=== PATIENT | male | born 1940 | race Caucasian/White ===

== ENCOUNTER 2017-04-14 08:59 | Observation (INO) | payer MEDICARE, OTHER ==
[2017-04-14] MEDS ORDERED: Sodium Chloride 0.9% 1,000 ML IV ONE (09:15)
[2017-04-14] MEDS ORDERED: Ondansetron 4 MG/2 ML SDV IVPUSH ONE (09:24)
[2017-04-14 09:51] LABS: CHLORIDE,CL 111 mmol/L (98-110); SODIUM,NA 143 mmol/L (136-146)
[2017-04-14] MEDS ORDERED: Meclizine 25 MG Tab PO ONE (10:09)
--- NOTE | 2017-04-14 10:11 | EDM.PDOC ---
ED HPI GENERAL MEDICAL PROBLEM - General Chief Complaint: Neurological Problem Stated Complaint: DIZZY Time Seen by Provider: 04/14/17 09:08 Source of Information: Reports: Patient History Limitations: Reports: No Limitations - History of Present Illness INITIAL COMMENTS - FREE TEXT/NARRATIVE: History of present illness: []Patient was driving to his friend's house and suddenly became dizzy with spinning around him. Patient called a friend who picked him up and brought him to the emergency room. Noted that his speech is slurred. He has not had these symptoms in the past and have now subsided however he now feels extremely weak, nauseous with an upset stomach. He has not had any vomiting. He denies any visual changes, numbness, tingling, headache, chest pain, shortness of breath or back pain. Patient was also given a diagnosis of Parkinson's this week. Review of systems: As per history of present illness and below otherwise all systems reviewed and negative. Past medical history: As per history of present illness and as reviewed below otherwise noncontributory. Surgical history: As per history of present illness and as reviewed below otherwise noncontributory. Social history: No reported history of drug or alcohol abuse. Family history: As per history of present illness and as reviewed below otherwise noncontributory. Physical exam: General: Well developed, well nourished appears very weak HEENT: Atraumatic, normocephalic, pupils reactive, negative for conjunctival pallor or scleral icterus, mucous membranes moist, throat clear, neck supple, nontender, trachea midline. Lungs: Clear to auscultation, breath sounds equal bilaterally, chest nontender. Heart: S1S2, regular, negative for clicks, rubs, or JVD. Abdomen: Soft, nondistended, nontender. Negative for masses or hepatosplenomegaly. Negative for costovertebral tenderness. Pelvis: Stable nontender. Genitourinary: Deferred. Rectal: Deferred. Extremities: Atraumatic, negative for cords or calf pain. Neurovascular unremarkable. Neuro: Awake, alert, oriented. Cranial nerves II through XII unremarkable. Cerebellum unremarkable. Motor and sensory unremarkable throughout. Exam nonfocal. Diagnostics: []CBC, CMP, troponin, EKG, Therapeutics: []IV hydration, Solu-Medrol given Impression: []Generalized weakness, hypocalcemia, history of myasthenia gravis and Parkinson's. Consult to Dr. Swanson who is comfortable consulting on this patient if the hospitalist will admit. Dr. Dumont will be admitting this patient. Plan: []Admit for IV hydration, further workup and observation Definitive disposition and diagnosis as appropriate pending reevaluation and review of above. - Related Data Allergies Allergy/AdvReac Type Severity Reaction Status Date / Time No Known Allergies Allergy Verified 04/14/17 09:07 Home Meds: Home Meds Levothyroxine 25 mcg PO ACBREAKFAST 09/09/16 [History] PARoxetine HCl [Paroxetine HCl] 40 mg PO DAILY 09/09/16 [History] Prednisone [IJD: predniSONE] 20 mg PO ASDIRECTED 09/09/16 [History] Carbidopa/Levodopa [Sinemet 10-100 mg] 10 - 100 mg PO ASDIRECTED 04/14/17 [ History] Past Medical History HEENT History: Reports: Hard of Hearing, Impaired Vision Other HEENT History: wear glasses Cardiovascular History: Reports: Hypertension Gastrointestinal History: Reports: None Neurological History: Reports: Other (See Below) Other Neuro History: Myastenia Gravis, parkinsons disease Psychiatric History: Reports: Anxiety Endocrine/Metabolic History: Reports: Other (See Below) Other Endocrine/Metabolic History: myasthenia gravis - Infectious Disease History Infectious Disease History: Reports: Chicken Pox, Measles, Mumps - Past Surgical History GI Surgical History: Reports: Cholecystectomy Social & Family History - Family History Family Medical History: Noncontributory - Tobacco Use Smoking Status *Q: Former Smoker Used Tobacco, but Quit: Yes Month Tobacco Last Used: 1979 Second Hand Smoke Exposure: No - Caffeine Use Caffeine Use: Reports: Soda Caffeine Use Comment: 1drink/day - Recreational Drug Use Recreational Drug Use: No ED ROS GENERAL - Review of Systems Review Of Systems: See Below (See history of present illness) ED EXAM, DIZZINESS - Physical Exam Exam: See Below (See history of present illness) Course - Vital Signs Last Recorded V/S: Last Vital Signs Temp 36.1 C 04/14/17 10:27 Pulse 55 L 04/14/17 10:27 Resp 16 04/14/17 10:27 BP 173/76 H 04/14/17 10:27 Pulse Ox 96 04/14/17 10:27 - Orders/Labs/Meds Orders: Active Orders 24 hr Category Date Time Status EKG Documentation Completion [RC] STAT Care 04/14/17 09:08 Active EKG Documentation Completion [RC] STAT Care 04/14/17 09:15 Inactive Head wo Cont [CT] Stat Exams 04/14/17 10:26 Taken Labs: Laboratory Tests 04/14/17 04/14/17 04/14/17 Range/Units 09:10 09:10 09:10 WBC 8.14 (4.0-11.0) K/uL RBC 4.14 L (4.50-5.90) M/uL Hgb 14.1 (13.0-17.0) g/dL Hct 40.0 (38.0-50.0) % MCV 96.6 (80.0-98.0) fL MCH 34.1 H (27.0-32.0) pg MCHC 35.3 (31.0-37.0) g/dL RDW Std Deviation 47.8 (28.0-62.0) fl RDW Coeff of Jeff 14 (11.0-15.0) % Plt Count 173 (150-400) K/uL MPV 10.50 (7.40-12.00) fL Neut % (Auto) 69.3 (48.0-80.0) % Lymph % (Auto) 20.5 (16.0-40.0) % Barren % (Auto) 6.9 (0.0-15.0) % Eos % (Auto) 2.8 (0.0-7.0) % Baso % (Auto) 0.5 (0.0-1.5) % Neut # (Auto) 5.6 (1.4-5.7) K/uL Lymph # (Auto) 1.7 (0.6-2.4) K/uL Barren # (Auto) 0.6 (0.0-0.8) K/uL Eos # (Auto) 0.2 (0.0-0.7) K/uL Baso # (Auto) 0.0 (0.0-0.1) K/uL Nucleated RBC % 0.0 /100WBC Nucleated RBCs # 0 K/uL Sodium 143 (136-146) mmol/L Potassium 3.4 L (3.5-5.1) mmol/L Chloride 111 H (98-110) mmol/L Carbon Dioxide 22 (21-31) mmol/L BUN 19 (6.0-23.0) mg/dL Creatinine 0.9 (0.6-1.5) mg/dL Est Cr Clr Drug Dosing 78.65 mL/min Estimated GFR (MDRD) > 60.0 ml/min Glucose 124 H (60-110) mg/dL Calcium 8.6 L (8.8-10.8) mg/dL Total Bilirubin 1.5 (0.1-1.5) mg/dL AST 20 (5-40) IU/L ALT 26 (8-54) IU/L Alkaline Phosphatase 64 (40-150) Troponin I < 0.10 (0.0-0.29) NG/ML Total Protein 6.8 (6.0-8.0) g/dL Albumin 3.9 (3.4-4.8) g/dL Globulin 2.9 (2.0-3.5) g/dL Albumin/Globulin Ratio 1.3 (1.3-2.8) Amylase 31 (10-90) U/L Lipase 10 (7-80) U/L Meds: Medications Discontinued Medications Generic Name Dose Route Start Last Admin Trade Name Freq PRN Reason Stop Dose Admin Sodium Chloride 1,000 mls @ 999 mls/hr 04/14/17 09:15 04/14/17 09:22 Normal Saline IV 04/14/17 10:15 999 mls/hr .Bolus ONE Administration Meclizine HCl 25 mg 04/14/17 10:09 04/14/17 10:26 Antivert PO 04/14/17 10:10 25 mg ONETIME ONE Administration Methylprednisolone Sodium Succinate 125 mg 04/14/17 10:16 04/14/17 10:26 Solu-Medrol IVPUSH 04/14/17 10:17 125 mg ONETIME ONE Administration Ondansetron HCl 4 mg 04/14/17 09:24 04/14/17 09:27 Zofran IVPUSH 04/14/17 09:25 4 mg ONETIME ONE Administration Departure - Departure Time of Disposition: 11:25 Disposition: Admitted As Inpatient 64 Condition: good, fair Clinical Impression: Generalized weakness - Discharge Information Forms: ED Department Discharge - My Orders Last 24 Hours: My Active Orders 04/14/17 09:08 EKG Documentation Completion [RC] STAT 04/14/17 09:15 EKG Documentation Completion [RC] STAT 04/14/17 10:26 Head wo Cont [CT] Stat - Assessment/Plan Last 24 Hours: My Active Orders 04/14/17 09:08 EKG Documentation Completion [RC] STAT 04/14/17 09:15 EKG Documentation Completion [RC] STAT 04/14/17 10:26 Head wo Cont [CT] Stat
[2017-04-14] MEDS ORDERED: methylPREDNISolone Sodium Succinate 125 MG/2 ML SDV IVPUSH ONE (10:16)
--- NOTE | 2017-04-14 11:22 | CT ---
EXAMINATION: Non contrast CT head. Coronal and sagittal reformats. HISTORY: Pain FINDINGS: No evidence of intra or extra axial hemorrhage, mass, midline shift, hydrocephalus or edema. Mild g eneralized atrophy. Subtle periventricular white matter hypodensities are noted. No hypoattenuation changes in the major vascular territories to suggest acute infarct. No abnormal intracranial calcifications are detected. No evidence of substantial vascular calcifica tions. Paranasal sinuses and mastoid air cells are well aerated without substantial findings. Pituitary fossa appears unremarkable. Calvarium is intact. No evidence of skull fracture. IMPRESSION: 1. Mild generalized atrophy and small vessel ischemic changes. 2. No acute intracranial findings.
[2017-04-14] MEDS ORDERED: Ondansetron 4 MG Tab.DIS PO PRN (13:14)
[2017-04-14] MEDS ORDERED: Acetaminophen 325 MG Tab PO PRN (13:14)
[2017-04-14] MEDS: Enoxaparin 40 MG/0.4 ML Syringe SUBCUT SCH (14:15)
--- NOTE | 2017-04-14 14:53 | PCM.CONS ---
H&P History of Present Illness - General Date of Service: 04/14/17 Source of Information: Patient - History of Present Illness Initial Comments - Free Text/Narative: This is a 76-year-old man with a history of Parkinson's disease, myasthenia gravis who presented to the emergency department with vertigo and nausea, ataxia. This morning he felt fine. Then, all of a sudden he developed dizziness with spinning sensation associated with nausea. He did not try and walk. He had a friend bring him in to emergency department. In the emergency department, the vertigo began to resolve. It had been present for about 45 minutes. He can't describe exactly what is different, but he "doesn't feel right". He did feel like he had a panic attack after the vertigo started. No abdominal pain or headaches. He did not note numbness or tingling on either side. He notes general weakness. He denies double vision, droopy eyelids, swallowling problems , dysarthria. He denies any recent fevers, chills, headache, neck pain, back pain, diarrhea, chest pain, shortness of breath Regarding myasthenia gravis, he developed generalized weakness, and droopy eyelids, double vision, dysarthria 1990 and was diagnosed with myasthenia gravis. He is currently on prednisone. He does not recall being on any other medications. He denies any recent symptoms of his myasthenia gravis. About 10 months ago, he developed right hand tremor and deterioration in his balance and gait. He saw Dr. Cox in [place] 2 weeks ago and was diagnosed with Parkinson's disease, and he was started on Sinemet which has been helpful. He takes 1.5 tablets twice a day. - Related Data Allergies/Adverse Reactions: Allergies Allergy/AdvReac Type Severity Reaction Status Date / Time No Known Allergies Allergy Verified 04/14/17 09:07 Home Medications: Home Meds Levothyroxine 25 mcg PO ACBREAKFAST 09/09/16 [History] PARoxetine HCl [Paroxetine HCl] 40 mg PO DAILY 09/09/16 [History] Prednisone [IJD: predniSONE] 20 mg PO ASDIRECTED 09/09/16 [History] Carbidopa/Levodopa [Sinemet 10-100 mg] 10 - 100 mg PO ASDIRECTED 04/14/17 [ History] Past Medical History HEENT History: Reports: Hard of Hearing, Impaired Vision Other HEENT History: wear glasses Cardiovascular History: Reports: Hypertension Gastrointestinal History: Reports: None Neurological History: Reports: Other (See Below) Other Neuro History: Myastenia Gravis, parkinsons disease Psychiatric History: Reports: Anxiety Endocrine/Metabolic History: Reports: Other (See Below) Other Endocrine/Metabolic History: myasthenia gravis - Infectious Disease History Infectious Disease History: Reports: Chicken Pox, Measles, Mumps - Past Surgical History GI Surgical History: Reports: Cholecystectomy Social & Family History - Family History Family Medical History: Noncontributory - Tobacco Use Smoking Status *Q: Former Smoker Used Tobacco, but Quit: Yes Month Tobacco Last Used: 1979 Second Hand Smoke Exposure: No - Caffeine Use Caffeine Use: Reports: Soda Caffeine Use Comment: 1drink/day - Recreational Drug Use Recreational Drug Use: No H&P Review of Systems - Review of Systems: Review Of Systems: ROS reveals no pertinent complaints other than HPI. Exam - Exam Exam: See Below - Vital Signs Vital Signs: Last Vital Signs Temp 36.4 C 04/14/17 12:37 Pulse 54 L 04/14/17 12:37 Resp 18 04/14/17 12:37 BP 148/83 H 04/14/17 12:37 Pulse Ox 98 04/14/17 12:37 Weight: 123.2 kg - Exam Physical Exam Comments:: Constitutional: No acute distress Psychiatric: Mood/Affect: normal/appropriate Neurological: Mental Status: General: Normal activity, good hygiene, appropriate appearance. Level of consciousness: Awake, alert. Concentration/Attention Span: Normal. Comprehension/Praxis: Intact Fund of Knowledge/memory: Adequate recent and remote recall. Language: Fluent and articulate without evidence of aphasia or dysarthria. Cranial Nerves: Pupils equally round and reactive to light. Visual guillen full to confrontation. Gaze slightly dysconjugate otherwise EOMI, no fatigable weakness.. Sensation intact and symmetric to light touch. Facial strength is full and symmetric. Palate elevates symmetrically. Normal shrug bilaterally. Tongue protrudes midline and is full strenght. Motor: Mildly increased in right upper limb. . No drift. Right triceps and bilateral ADM, finger extensors are 4+/5, otherwise 5/5 throughout proximal and distal muscles. Sensation: Sensation is decreased pinprick in distal lower limbs. Vibratory sense absent at great toes. Deep tendon reflexes: Normoactive throughout except right ankle jerk reduced. . Plantar responses are flexor bilaterally. Coordination: Resting tremor in right hand, 3-4 hz. Finger to nose, heel to garcía are intact. Rapid alternating movements are moderately impaired in upper limbs Gait: Mildly wide based gait, right hand tremor. HEENT: Eyes: non icteric, Mouth: moist mucus membranes Cardiovascular: RRR, no obvious murmur Respiratory: clear lungs GI: non tender Musculoskeletal: non tender Skin: no visible rash - Patient Data Result Diagrams: 04/14/17 09:10 04/14/17 09:10 Imaging Impressions last 24 hrs: CT head - no acute process Consult PN Assessment/Plan Procedures: Procedures ASSAY OF TROPONIN QUANT (09/09/16) ASSAY THYROID STIM HORMONE (09/09/16) COMPLETE CBC W/AUTO DIFF WBC (09/09/16) COMPREHEN METABOLIC PANEL (09/09/16) CT HEAD/BRAIN W/O DYE (09/09/16) ELECTROCARDIOGRAM TRACING (09/09/16) METABOLIC PANEL TOTAL CA (09/09/16) MRI BRAIN STEM W/O DYE (09/09/16) PROTHROMBIN TIME (09/09/16) PT EVALUATION (09/09/16) ROUTINE VENIPUNCTURE (09/09/16) URINALYSIS AUTO W/SCOPE (09/09/16) (1) Vertigo SNOMED Code(s): 612635035 Code(s): R42 - DIZZINESS AND GIDDINESS Current Visit: Yes Assessment:: 76-year-old man with history of myasthenia gravis and Parkinson's disease admitted with abrupt onset vertigo, nausea and ataxia, spontaneously resolving. His examination is notable for signs of parkinsonism. I don't find compelling evidence of myasthenia gravis exacerbation. He does have mild distal weakness, which I suspect is related to neuropathy. However, he also has mild right triceps weakness. I am not sure if this is new or chronic, but in conjunction with the episode of vertigo, which was very abrupt in onset not associated with position change, cerebral ischemia etiology is a consideration. I recommend TIA/ stroke work up. Recommendations: -MRI brain -MRA head -MRA neck -echocardiogram -telemetry, -lipid profile, Hgb A1c -PT evaluation Problem List Initiated/Reviewed/Updated: Yes
--- NOTE | 2017-04-14 16:39 | US ---
EXAMINATION: Carotid US with dias scale and duplex imaging. HISTORY: MALLIKA FINDINGS: Ultrasound examination of bilateral cervical carotid arteries was performed using dias scale and dup vitaly imaging. There is minimal scattered atheromatous plaque within the carotid arteries bilaterally . Antegrade flow is noted within the vertebrals. These are the peak velocities in cm per second (systole), right and left respectively, by a comma: CCA (common carotid artery) - 62, 102 ICA (internal carotid artery) - 48, 57 ECA (External carotid artery) - 82, 99 ICA/CCA systolic ratio Right - 0.9 Left - 1.0 IMPRESSION: Minimal scattered atheromatous plaque without significant elevated velocities.
--- NOTE | 2017-04-14 17:02 | PCM.HP ---
H&P History of Present Illness - General Date of Service: 04/14/17 Admit Problem/Dx: Weakness and vertigo Source of Information: Patient History Limitations: Reports: No Limitations - History of Present Illness Initial Comments - Free Text/Narative: 76-year-old male admitted 04/14/17 for weakness and vertigo with past medical history of myasthenia gravis, Parkinson's, hypothyroidism, and depression. Patient presented to the emergency department by personal vehicle stating that this morning while driving to his friend's house he suddenly became dizzy, nauseous, and weak. He felt like the "world was spinning around". Friend who brought patient thought that his speech was slurred when he picked him up. Denied any facial drooping but felt generally weak "all over". This vertigo- type of sensation and weakness continued but began to resolve in the emergency department. Patient has had no previous similar episodes in the past. He denies any chest pain, palpitations, or shortness of breath prior to or following the event. Patient does have a long history of myasthenia gravis diagnosed in 1990. States he does not take medication for this but is on home prednisone. He was first diagnosed secondary to changes in his vision. He reports no history of myasthenic crisis. Patient was also recently, 2 wks ago, diagnosed with Parkinson's. He was started on Sinemet by Dr. Cox in [place] and feels tremors in his hands and balance has improved since started the medication. He did increase his dose of carbidopa levodopa the day prior to event but has had no other recent changes in medication. In the emergency department vital signs showed mild hypertension 148/83 and bradycardia at 54 bpm. Patient was afebrile and satting 98% on oxygen. CBC was unremarkable. Patient did have hypokalemia 3.4 and mild [address]cemiaMyas 8.6. CT of head showed mild generalized atrophy and small vessel changes but no acute findings. Hospitalist as well as neurologist Dr. Swanson were consulted and patient was admitted for weakness and vertigo. Onset of Symptoms: Reports: Today, Sudden - Related Data Allergies/Adverse Reactions: Allergies Allergy/AdvReac Type Severity Reaction Status Date / Time No Known Allergies Allergy Verified 04/14/17 09:07 Home Medications: Home Meds Levothyroxine 25 mcg PO ACBREAKFAST 09/09/16 [History] PARoxetine HCl [Paroxetine HCl] 40 mg PO DAILY 09/09/16 [History] Carbidopa/Levodopa [Carbidopa-Levodopa 25-100 Tab] 1.5 tab PO BID 04/14/17 [ History] Furosemide 20 mg PO DAILY 04/14/17 [History] Past Medical History HEENT History: Reports: Hard of Hearing, Impaired Vision Other HEENT History: wear glasses Cardiovascular History: Reports: Hypertension Gastrointestinal History: Reports: None Neurological History: Reports: Other (See Below) Other Neuro History: Myastenia Gravis, parkinsons disease Psychiatric History: Reports: Anxiety Endocrine/Metabolic History: Reports: Other (See Below) Other Endocrine/Metabolic History: myasthenia gravis - Infectious Disease History Infectious Disease History: Reports: Chicken Pox, Measles, Mumps - Past Surgical History GI Surgical History: Reports: Cholecystectomy Social & Family History - Family History Family Medical History: Noncontributory - Tobacco Use Smoking Status *Q: Former Smoker Used Tobacco, but Quit: Yes Month Tobacco Last Used: 1979 Second Hand Smoke Exposure: No - Caffeine Use Caffeine Use: Reports: Soda Caffeine Use Comment: 1drink/day - Recreational Drug Use Recreational Drug Use: No H&P Review of Systems - Review of Systems: Review Of Systems: See Below General: Reports: Weakness. Denies: Fever, Chills, Fatigue, Diaphoresis HEENT: Denies: Dysphasia, Headaches, Sinus Congestion, Sore Throat Pulmonary: Denies: Shortness of Breath, Wheezing, Cough, Hemoptysis Cardiovascular: Denies: Chest Pain, Palpitations, Edema Gastrointestinal: Denies: Abdominal Pain, Black Stool, Bloody Stool, Diarrhea, Vomiting Genitourinary: Denies: Dysuria Musculoskeletal: Denies: Neck Pain Psychiatric: Reports: Depression, Anxiety. Denies: Confusion Neurological: Reports: Difficulty Walking, Weakness, Change in Speech. Denies: Headache, Numbness, Paresthesia Exam - Exam Exam: See Below - Vital Signs Vital Signs: Last Vital Signs Temp 36.6 C 04/14/17 16:00 Pulse 56 L 04/14/17 16:00 Resp 16 04/14/17 16:00 BP 149/77 H 04/14/17 16:00 Pulse Ox 93 L 04/14/17 16:00 Weight: 123.2 kg - Exam Quality Assessment: DVT Prophylaxis General: Alert, Oriented, Cooperative HEENT: Conjunctiva Clear, EACs Clear, EOMI, Hearing Intact, Mucosa Moist & [place] , Nares Patent, Normal Nasal Septum, Posterior Pharynx Clear, PERRLA Neck: Supple, Trachea Midline, 2 Lungs: Clear to Auscultation, Normal Respiratory Effort Cardiovascular: Regular Rhythm, Normal S1, Normal S2, Bradycardia Abdomen: Normal Bowel Sounds, Soft. No: Tenderness, Absent Bowel Sounds Back Exam: Normal Inspection, Full Range of Motion. No: CVA Tenderness (L), CVA Tenderness (R) Extremities: Normal Inspection, Normal Pulses. No: Calf Tenderness, Edema Peripheral Pulses: 2+: Radial (L), Radial (R), Posterior Tibial (L), Posterior Tibial (R), Dorsalis Pedis (L), Dorsalis Pedis (R) Skin: Warm, Dry, Intact Neurological: Cranial Nerves Intact, Reflexes Equal Bilateral. No: Strength Equal Bilateral (Initial exam in ED generalized weakness left upper extremety worse than right. On floor 1 hr late no deficiets noted.) Neuro Extensive - Mental Status: Alert, Oriented x3, Normal Mood/Affect, Normal Cognition, Memory Intact Neuro Extensive - Motor, Sensory, Reflexes: CN II-XII Intact, Normal Reflexes, Ataxia Psychiatric: Alert, Normal Affect, Normal Mood - Patient Data Result Diagrams: 04/14/17 09:10 04/14/17 09:10 *Q Meaningful Use (ADM) - VTE *Q VTE Criteria *Q: - Stroke *Q Stroke Criteria *Q: - AMI *Q AMI Criteria *Q: - Problem List (1) Parkinson disease SNOMED Code(s): 26666630 ICD Code: G20 - PARKINSON'S DISEASE Status: Chronic Priority: Medium Current Visit: Yes (2) Hypokalemia SNOMED Code(s): 73823874 ICD Code: E87.6 - HYPOKALEMIA Status: Acute Priority: Medium Current Visit: Yes (3) Hypocalcemia SNOMED Code(s): 9664773 ICD Code: E83.51 - HYPOCALCEMIA Status: Acute Priority: Medium Current Visit: Yes (4) Generalized weakness SNOMED Code(s): 71976004 ICD Code: R53.1 - WEAKNESS Status: Acute Priority: High Current Visit: Yes (5) Vertigo SNOMED Code(s): 254864703 ICD Code: R42 - DIZZINESS AND GIDDINESS Status: Acute Priority: High Current Visit: Yes (6) Hypothyroidism SNOMED Code(s): 28480176 ICD Code: E03.9 - HYPOTHYROIDISM, UNSPECIFIED Status: Chronic Priority: Medium Current Visit: Yes Qualifiers: Hypothyroidism type: unspecified Qualified Code(s): E03.9 - Hypothyroidism , unspecified (7) Myasthenia gravis SNOMED Code(s): 88568195 ICD Code: G70.00 - MYASTHENIA GRAVIS WITHOUT (ACUTE) EXACERBATION Status: Chronic Priority: High Current Visit: Yes Problem List Initiated/Reviewed/Updated: Yes Orders Last 24hrs: Active Orders 24 hr Category Date Time Status Patient Status [ADT] Routine ADT 04/14/17 13:14 Active Antiembolic Devices [RC] PER UNIT ROUTINE Care 04/14/17 13:18 Active Blood Glucose Check, Bedside [RC] WITHMEALSANDBED Care 04/14/17 13:14 Active Notify Provider Consults [RC] ASDIRECTED Care 04/14/17 13:19 Active Oxygen Therapy [RC] PRN Care 04/14/17 13:14 Active Pulse Oximetry [RC] CONTINUOUS Care 04/14/17 13:17 Active Telemetry Monitoring [Cardiac Monitoring] [RC] . Care 04/14/17 16:18 Active DIRECTED Up With Assistance [RC] ASDIRECTED Care 04/14/17 13:14 Active VTE/DVT Education [RC] PER UNIT ROUTINE Care 04/14/17 13:14 Active Vital Signs [RC] Q4H Care 04/14/17 13:14 Active Consult to Physician [CONS] Routine Cons 04/14/17 13:14 Active PT Evaluation and Treatment [CONS] Routine Cons 04/14/17 16:18 Active Heart Healthy Diet [DIET] Diet 04/14/17 Dinner Active Ang Head wo Cont [MR] Routine Exams 04/14/17 13:09 Ordered Ang Neck wo Cont [MR] Routine Exams 04/14/17 13:09 Ordered Brain w wo Cont [MR] Routine Exams 04/14/17 13:09 Ordered Echo Comp wo Cont [US] Routine Exams 04/14/17 13:09 Ordered BASIC METABOLIC PANEL,BMP [CHEM] AM Lab 04/15/17 05:11 Ordered BASIC METABOLIC PANEL,BMP [CHEM] AM Lab 04/16/17 05:11 Ordered BASIC METABOLIC PANEL,BMP [CHEM] AM Lab 04/17/17 05:11 Ordered CBC WITH AUTO DIFF [HEME] AM Lab 04/15/17 05:11 Ordered CBC WITH AUTO DIFF [HEME] AM Lab 04/16/17 05:11 Ordered CBC WITH AUTO DIFF [HEME] AM Lab 04/17/17 05:11 Ordered Acetaminophen [Tylenol] Med 04/14/17 13:14 Active 650 mg PO Q4H PRN Enoxaparin [Lovenox] Med 04/14/17 13:15 Active 40 mg SUBCUT DAILY Ondansetron [Zofran ODT] Med 04/14/17 13:14 Active 4 mg PO Q4H PRN Sequential Compression Device [OM.PC] Per Unit Routine Oth 04/14/17 13:17 Ordered Code Status [Resuscitation Status] Routine Resus Stat 04/14/17 15:55 Ordered Medication Orders Acetaminophen (Tylenol) 650 mg PO Q4H PRN PRN Reason: Pain (Mild 1-3)/fever Enoxaparin Sodium (Lovenox) 40 mg SUBCUT DAILY DEVAN Last Admin: 04/14/17 14:15 Dose: 40 mg Ondansetron HCl (Zofran Odt) 4 mg PO Q4H PRN PRN Reason: nausea, able to take PO Assessment/Plan Comment:: 76-year-old male admitted 04/14/17 for weakness and vertigo with past medical history of myasthenia gravis, Parkinson's, hypothyroidism, and depression. Vertigo/Weakness: On exam in ED patient had mild ataxia when sitting up from laying position and generalized weakness but left more than right upper extremity. Dr. Swanson, neurologist consulted and feels symptoms more consistent with TIA versa myasthenic crisis or complication from Parkinson's. Will place patient on telemetry and get Brain MRI, MRA head & neck, Carotid duplex, Echocardiogram, and lipid panel to fully eval. Symptoms seem more suggestive of BPPV. PT/OT ordered to assess for this as well as strength. Hypokalemia: Mild will replace with KCl Hypocalcemia: Mild will replace. Most likely neither K or Ca related to event. Myasthenia gravis: Unsure if ever treated per patient but on prednisone which will be continued. As above, not believed to be cause of current symptoms, however patient has never had crisis before. Will continuously monitor O2 for any changes in resp status. Parkinson's: Newly diagnosed, seems to be improving on Sinemet. Did have increase in dose day before event but most likely not related. Hypothyroidism: Will order TSH to access current status and cont. home med. Uday in ED most likley not related Depression: Stable cont. home paroxetine. VTE: SCD, Lovenox Dispo: Tomorrow pending studys
[2017-04-14] MEDS ORDERED: Calcium Carbonate 500 MG Tab.Chew PO ONE (17:03)
[2017-04-14] MEDS ORDERED: Potassium Chloride 20 MEQ Tab.ER PO ONE (17:04)
[2017-04-14] MEDS: Carbidopa/Levodopa 25-100 MG Tab PO SCH ×2 (17:43→20:49)
[2017-04-14] MEDS: Furosemide 20 MG Tab PO SCH (17:44)
[2017-04-15 04:57] LABS: CHLORIDE,CL 111 mmol/L (98-110); SODIUM,NA 142 mmol/L (136-146)
[2017-04-15] MEDS ORDERED: Levothyroxine 25 MCG Tab PO SCH (07:30)
[2017-04-15] MEDS ORDERED: PARoxetine 20 MG Tab PO SCH (09:00)
[2017-04-15] MEDS: Enoxaparin 40 MG/0.4 ML Syringe SUBCUT SCH (09:34)
[2017-04-15] MEDS: Carbidopa/Levodopa 25-100 MG Tab PO SCH (09:35)
[2017-04-15] MEDS: Furosemide 20 MG Tab PO SCH (09:35)
[2017-04-15] MEDS ORDERED: Gadobenate Dimeglumine 529 MG/ML 20 ML SDV IVPUSH STA (11:02)
[2017-04-15 12:17] VITALS: BP 156/81
--- NOTE | 2017-04-15 12:46 | MR ---
EXAMINATION: MRI of the brain with and without contrast. MRA neck and MRA head without contrast. TECHNIQUE: Multiplanar multisequence imaging of the brain without and following the administration o f 20 mL MultiHance. [id number] images obtained through the head and neck with 3-D MIP reconstruc tions. HISTORY: TIA. FINDINGS: Head: Cerebral hemispheres and the deep nuclei are without hemorrhage, mass, edema, or enhancement. There is mild generalized atrophy. There are a few small periventricular and subcortical white matte r FLAIR intensities identified. No extraaxial collections or hemorrhage. The ventricular system is of normal size and configuration without hydrocephalus. No abnormal diffusion restriction. The brainstem and cerebellum are without hemorrhage, mass, edema, gliosis, enhancement or atrophy. The carotid basilar artery flow voids are intact. The otomastoid airspaces are clear. No internal auditory canal or cerebellopontine angle masses or enhancement. Paranasal sinuses are clear. The globes, optic nerves, orbital apices, optic chiasm, optic tracts, and visual cortices are unremarkable. Pituitary and sella turcica are unremarkable. No meningeal enhancement. The craniocervical junction is unremarkable. No siderosis or evidence of vascular mal formation. The calvarium is intact. MRA Neck: There is a normal three-vessel origin of the aortic arch. The common internal carotid herminio peggy appear patent. The vertebral arteries appear grossly normal in caliber demonstrating antegrade flow. The left vertebral artery is mildly dominant. MRA Head: The distal internal carotid arteries are normal in caliber. Basilar artery appears normal. The posterior, middle, anterior cerebral arteries appear normal. No definite stricture or aneurysm. The anterior and posterior communicating arteries are not well characterized. IMPRESSION: 1. No acute intracranial abnormality identified. 2. Mild atrophy and small vessel ischemic changes. 3. Grossly unremarkable intracranial and extracranial arterial circulation.
--- NOTE | 2017-04-16 16:03 | PCM.DCSUM1 ---
Discharge Summary - Hospital Course HPI Initial Comments: 76-year-old male admitted 04/14/17 for weakness and vertigo with past medical history of myasthenia gravis, Parkinson's, hypothyroidism, and depression. Brief History: Patient presented to the emergency department by personal vehicle stating that morning of admission he was driving to his friend's house and suddenly became dizzy, nauseous, and weak. He felt like the "world was spinning around". Friend who brought patient thought that his speech was slurred when he picked him up. Denied any facial drooping but felt generally weak "all over". This vertigo-type of sensation and weakness continued but began to resolve in the emergency department. Patient had no previous similar episodes in the past. He denied any chest pain, palpitations, or shortness of breath prior to or following the event. Patient does have a long history of myasthenia gravis diagnosed in 1990. Stated he did not take medication for this but is on home prednisone. He was first diagnosed secondary to changes in his vision. He reported no history of myasthenic crisis. Patient was also recently, 2 wks ago, diagnosed with Parkinson's. He was started on Sinemet by Dr. Cox in [place] and felt tremors in his hands and balance had improved since starting medication. He did increase his dose of carbidopa levodopa the day prior to event but had no other recent changes in medication. - Discharge Data Discharge Date: 04/15/17 Discharge Disposition: Home, Self-Care 01 Condition: Good - Discharge Diagnosis/Problem(s) (1) Parkinson disease SNOMED Code(s): 43726290 ICD Code: G20 - PARKINSON'S DISEASE Status: Chronic Priority: Medium (2) Hypokalemia SNOMED Code(s): 87411377 ICD Code: E87.6 - HYPOKALEMIA Status: Acute Priority: Medium (3) Hypocalcemia SNOMED Code(s): 2271496 ICD Code: E83.51 - HYPOCALCEMIA Status: Acute Priority: Medium (4) Generalized weakness SNOMED Code(s): 00704546 ICD Code: R53.1 - WEAKNESS Status: Acute Priority: High (5) Vertigo SNOMED Code(s): 782772043 ICD Code: R42 - DIZZINESS AND GIDDINESS Status: Acute Priority: High (6) Hypothyroidism SNOMED Code(s): 75077540 ICD Code: E03.9 - HYPOTHYROIDISM, UNSPECIFIED Status: Chronic Priority: Medium Qualifiers: Hypothyroidism type: unspecified Qualified Code(s): E03.9 - Hypothyroidism , unspecified (7) Myasthenia gravis SNOMED Code(s): 23781515 ICD Code: G70.00 - MYASTHENIA GRAVIS WITHOUT (ACUTE) EXACERBATION Status: Chronic Priority: High - Patient Summary/Data Consults: Consultations 04/14/17 13:14 Consult to Physician [CONS] Routine 04/14/17 16:18 PT Evaluation and Treatment [CONS] Routine Hospital Course: 76-year-old male admitted 04/14/17 for weakness and vertigo with past medical history of myasthenia gravis, Parkinson's, hypothyroidism, and depression. Patient presented to the emergency department by personal vehicle stating that morning of admission he was driving to his friend's house and suddenly became dizzy, nauseous, and weak. He felt like the "world was spinning around". Friend who brought patient thought that his speech was slurred when he picked him up. Denied any facial drooping but felt generally weak "all over". This vertigo- type of sensation and weakness continued but began to resolve in the emergency department. Patient had no previous similar episodes in the past. He denied any chest pain, palpitations, or shortness of breath prior to or following the event. Patient does have a long history of myasthenia gravis diagnosed in 1990. Stated he did not take medication for this but is on home prednisone. He was first diagnosed secondary to changes in his vision. He reported no history of myasthenic crisis. Patient was also recently, 2 wks ago, diagnosed with Parkinson's. He was started on Sinemet by Dr. Cox in [place] and felt tremors in his hands and balance had improved since starting medication. He did increase his dose of carbidopa levodopa the day prior to event but had no other recent changes in medication. In the emergency department vital signs showed mild hypertension 148/83 and bradycardia at 54 bpm. Patient was afebrile and satting 98% on oxygen. CBC was unremarkable. Patient did have hypokalemia 3.4 and [address]Myas 8.6. CT of head showed mild generalized atrophy and small vessel changes but no acute findings. Hospitalist as well as neurologist Dr. Swanson were consulted and patient was admitted for weakness and vertigo. BPPV vs. TIA vs Mysathenic crisis. Brain MRI, MRA of head and neck, carotid ultrasound, echocardiogram, and lipid panel were all ordered and unremarkable for acute episode. His current episode was most likely BPPV. He had complete resolution of his symptoms by the time he had reach floor. PT/OT work with patient during his stay. Patient did have mild hypokalemia and hypocalcemia which was corrected and thought most likely not related. Patient was discharged in good condition on 04/16/17. Symptoms toward [place] most consistent with BPV. Patient was informed and educated about diagnosis. He was scheduled for a one-week followup with his PCP, Demetris. He is to followup with his neurologist, Dr. Cox as needed. - Patient Instructions Diet: Usual Diet as Tolerated Activity: Rest and Relax Today Driving: Do Not Drive Showering/Bathing: March Shower Notify Provider of: Fever, Increased Pain, Swelling and Redness, Drainage, Nausea and/or Vomiting Other/Special Instructions: Follow-up with Jayashree Willson as scheduled - Discharge Plan Home Medications: Home Meds Levothyroxine 25 mcg PO ACBREAKFAST 09/09/16 [History] PARoxetine HCl [Paroxetine HCl] 40 mg PO DAILY 09/09/16 [History] Carbidopa/Levodopa [Carbidopa-Levodopa 25-100 Tab] 1.5 tab PO BID 04/14/17 [ History] Furosemide 20 mg PO DAILY 04/14/17 [History] Patient Handouts: Vertigo, [id number], Transient Ischemic Attack, Easy-to- Read, Weakness, [id number] - Discharge Summary/Plan Comment DC Time >30 min.: Yes Discharge Summary/Plan Comment: 76-year-old male admitted 04/14/17 for weakness and vertigo with past medical history of myasthenia gravis, Parkinson's, hypothyroidism, and depression. Patient presented to the emergency department by personal vehicle stating that morning of admission he was driving to his friend's house and suddenly became dizzy, nauseous, and weak. He felt like the "world was spinning around". Friend who brought patient thought that his speech was slurred when he picked him up. Denied any facial drooping but felt generally weak "all over". This vertigo- type of sensation and weakness continued but began to resolve in the emergency department. Patient had no previous similar episodes in the past. He denied any chest pain, palpitations, or shortness of breath prior to or following the event. Patient does have a long history of myasthenia gravis diagnosed in 1990. Stated he did not take medication for this but is on home prednisone. He was first diagnosed secondary to changes in his vision. He reported no history of myasthenic crisis. Patient was also recently, 2 wks ago, diagnosed with Parkinson's. He was started on Sinemet by Dr. Cox in [place] and felt tremors in his hands and balance had improved since starting medication. He did increase his dose of carbidopa levodopa the day prior to event but had no other recent changes in medication. In the emergency department vital signs showed mild hypertension 148/83 and bradycardia at 54 bpm. Patient was afebrile and satting 98% on oxygen. CBC was unremarkable. Patient did have hypokalemia 3.4 and mild hypocalcemiaMyas 8.6. CT of head showed mild generalized atrophy and small vessel changes but no acute findings. Hospitalist as well as neurologist Dr. Swanson were consulted and patient was admitted for weakness and vertigo. BPPV vs. TIA vs Mysathenic crisis. Brain MRI, MRA of head and neck, carotid ultrasound, echocardiogram, and lipid panel were all ordered and unremarkable for acute episode. His current episode was most likely BPPV. He had complete resolution of his symptoms by the time he had reach floor. PT/OT work with patient during his stay. Patient did have mild hypokalemia and hypocalcemia which was corrected and thought most likely not related. Patient was discharged in good condition on 04/16/17. Symptoms toward [place] most consistent with BPV. Patient was informed and educated about diagnosis. He was scheduled for a one-week followup with his PCP, Demetris. He is to followup with his neurologist, Dr. Cox as needed. - General Info Date of Service: 04/15/17 Admission Dx/Problem (Free Text: Weakness and vertigo Subjective Update: No return of symptoms. No weakness or vertigo. Feeling well. Eating and eliminating without difficulty. Ready to go home. - Review of Systems General: Denies: Fever, Weakness, Fatigue, Malaise HEENT: Denies: headaches, visual changes Pulmonary: Denies: shortness of breath, pleuritic chest pain, cough Cardiovascular: Denies: Chest Pain, Palpitations, Edema Gastrointestinal: Denies: Abdominal pain, Hematochezia, Melena, Nausea, Vomiting Genitourinary: Denies: dysuria, hematuria Musculoskeletal: Denies: neck pain, leg pain Skin: Denies: cyanosis Neurological: Reports: Tremors. Denies: Confusion, Dizziness, Trouble Speaking , Weakness Psychiatric: Denies: confusion - Patient Data Vitals - Most Recent: Last Vital Signs Temp 36.6 C 04/15/17 12:00 Pulse 56 L 04/15/17 12:00 Resp 20 04/15/17 12:00 BP 156/81 H 04/15/17 12:00 Pulse Ox 97 04/15/17 12:00 Weight - Most Recent: 122 kg Med Orders - Current: Current Medications Discontinued Medications Acetaminophen (Tylenol) 650 mg PO Q4H PRN PRN Reason: Pain (Mild 1-3)/fever Calcium Carbonate/Glycine (Tums) 1,000 mg PO ONETIME ONE Stop: 04/14/17 17:04 Last Admin: 04/14/17 17:43 Dose: 1,000 mg Carbidopa/Levodopa (Sinemet 25-100 Mg) 1.5 tab PO BID [facility] Last Admin: 04/15/17 09:35 Dose: 1.5 tab Enoxaparin Sodium (Lovenox) 40 mg SUBCUT DAILY [facility] Last Admin: 04/15/17 09:34 Dose: 40 mg Furosemide (Lasix) 20 mg PO DAILY [facility] Last Admin: 04/15/17 09:35 Dose: 20 mg Gadobenate Dimeglumine (Multihance) 20 ml IVPUSH ONETIME STA Stop: 04/15/17 11:03 Last Admin: 04/15/17 11:04 Dose: 20 ml Sodium Chloride (Normal Saline) 1,000 mls @ 999 mls/hr IV .Bolus ONE Stop: 04/14/17 10:15 Last Admin: 04/14/17 09:22 Dose: 999 mls/hr Levothyroxine Sodium (Levothyroxine) 25 mcg PO ACBREAKFAST [facility] Last Admin: 04/15/17 07:52 Dose: 25 mcg Meclizine HCl (Antivert) 25 mg PO ONETIME ONE Stop: 04/14/17 10:10 Last Admin: 04/14/17 10:26 Dose: 25 mg Methylprednisolone Sodium Succinate (Solu-Medrol) 125 mg IVPUSH ONETIME ONE Stop: 04/14/17 10:17 Last Admin: 04/14/17 10:26 Dose: 125 mg Ondansetron HCl (Zofran) 4 mg IVPUSH ONETIME ONE Stop: 04/14/17 09:25 Last Admin: 04/14/17 09:27 Dose: 4 mg Ondansetron HCl (Zofran Odt) 4 mg PO Q4H PRN PRN Reason: nausea, able to take PO Paroxetine HCl (Paxil) 40 mg PO DAILY [facility] Last Admin: 04/15/17 09:35 Dose: 40 mg Potassium Chloride (Klor-Con M20) 40 meq PO ONETIME ONE Stop: 04/14/17 17:05 Last Admin: 04/14/17 17:44 Dose: 40 meq - Exam Quality Assessment: Reports: supplemental oxygen, DVT prophylaxis General: Reports: alert, oriented, cooperative, no acute distress HEENT: Reports: Pupils equal, Pupils reactive, EOMI, Mucous membr. moist/pink Neck: Reports: supple, trachea midline, no JVD Lungs: Reports: Clear to auscultation, Normal respiratory effort Cardiovascular: Reports: Regular Rate, Regular Rhythm Abdomen: Reports: bowel sounds present, soft, no tenderness, no distension Back Exam: Reports: Normal Inspection, Full Range of Motion Extremities: Reports: no edema, normal pulses Skin: Reports: warm, dry, intact Wound/Incisions: Reports: healing well Neurological: Reports: no new focal deficit Psy/Mental Status: Reports: alert, normal affect, normal mood *Q Meaningful Use (DIS) - VTE *Q VTE Criteria *Q: - Stroke *Q Stroke Criteria *Q: - AMI *Q AMI Criteria *Q:
--- NOTE | 2017-04-18 13:10 | ECHO ---
EXAM DATE: 04/14/17 PATIENT'S AGE: 76 The echocardiogram report can be seen in this patient's EMR (Electronic Medical Record) in the Reports section. TIM
== END 2017-04-15 15:00 | disposition home or self-care (01) ==
LOC: MW.ED 08:59 → MW.MS 12:24
PROVIDERS: ADMIT Internal Medicine; ATTEND Internal Medicine
DX: R42 Dizziness and giddiness (principal); G20 Parkinson's disease; E87.6 Hypokalemia; E83.51 Hypocalcemia; R53.1 Weakness; G70.00 Myasthenia gravis without (acute) exacerbation; E03.9 Hypothyroidism, unspecified; F32.9 Major depressive disorder, single episode, unspecified; I10 Essential (primary) hypertension; F41.9 Anxiety disorder, unspecified; Z87.891 Personal history of nicotine dependence; Z79.899 Other long term (current) drug therapy; Z90.49 Acquired absence of other specified parts of digestive tract
CPT/HCPCS: 36415; 70450; 70544; 70547; 70553; 80048; 80053; 80061; 82150; 82962; 83690; 84443; 84484; 85025; 93005; 93306; 93880; 96361; 96372; 96374; 96375; 97116; 97161; 99284; A9270; A9577; G0378; J1650; J2405; J2930; J7040; 99285